=== PATIENT | female | born 1985 | race African-American/Black ===

== ENCOUNTER 2018-06-22 20:10 | Emergency (ER) | payer OTHER ==
[~2018-06-22] VITALS: Ht 160 cm; Wt 103.0 kg
[~2018-06-22 20:10] MED LIST: ADVAIR 100-501 EACH; ADVAIR 100-501 EACH INH; ADVAIR 250-501 EACH IH; ALBUTEROL INH; ALBUTEROL INHAL17 GM IH; ALBUTEROL2.5 MG/0.1; ALBUTEROL2.5 MG/31 INH; ALLERGY10 MG PO; CLEOCIN HCL300 MG PO; FLEXERIL PO; FLOVENT DISKUS50 MCG; HORMONE REPLACEMENT; NORCO 5-325 TA1 EACH PO; NORFLEX100 MG PO; PERCOCET 5-3251 EACH PO; PREDNISONE 1 MG1 M1; PREDNISONE 20 M20 MG PO; PREDNISONE50 MG PO; PRENATAL COMPL1 EACH PO; PROAIR HFA8.5 GM IH; PROAIR HFA8.5 GM INH; SINGULAIR; SINGULAIR 10 MG10 M1; VICODIN 5-5001 EACH PO; VIOS AEROSOL D1 EACH; ZOFRAN ODT4 MG PO; ZPAK PO
[2018-06-22 20:34] LABS: URINE BILIRUBIN NEGATIVE (Negative); URINE BLOOD NEGATIVE (Negative); URINE CLARITY CLEAR; URINE COLOR YELLOW; URINE GLUCOSE-RANDOM* NEGATIVE (Negative); URINE KETONES NEGATIVE (Negative); URINE LEUKOCYTES-REFLEX NEGATIVE (Negative); URINE NITRITE-REFLEX NEGATIVE (Negative); URINE PROTEIN (DIPSTICK) NEGATIVE (Negative); URINE UROBILINOGEN 0.2 E.U./dl (0.2-1.0)
[2018-06-22 22:18] LABS: ABSOLUTE NEUTROPHILS 8.9 thou/uL (1.4-8.2); BASOPHILS 0.3 % (0.0-2.0); EOSINOPHILS 0.7 % (0.0-3.0); HEMATOCRIT 41.5 % (37.0-47.0); HEMOGLOBIN 12.9 gm/dL (12.0-15.0); LYMPHOCYTES 12.6 % (24.0-44.0); MCV 90.2 fL (80.0-100.0); MONOCYTES 5.5 % (1.0-8.0); PLATELET COUNT 286 thou/uL (150-400); POLYS 80.9 % (36.0-66.0); RDW 14.3 % (10.5-14.5)
[2018-06-22 22:27] LABS: CALCIUM 8.7 mg/dL (8.5-10.1); CREATININE 0.6 mg/dL (0.6-1.0); POTASSIUM 3.9 mmol/L (3.5-5.1)
[2018-06-22 22:34] LABS: ALBUMIN 3.2 g/dL (3.4-5.0); TOTAL BILIRUBIN 0.5 mg/dL (<0.1-1.0); TOTAL PROTEIN 7.1 g/dL (6.4-8.2)
[2018-06-22] MEDS ORDERED: ONDANSETRON HCL4 M2 PO (22:57)
[2018-06-22 23:44] VITALS: BP 112/74
== END 2018-06-23 00:06 | disposition home or self-care (01) ==
LOC: ER 20:10
PROVIDERS: Physician Assistant
DX: R11.2 Nausea with vomiting, unspecified (principal); F12.90 Cannabis use, unspecified, uncomplicated; J45.909 Unspecified asthma, uncomplicated; Z77.22 Contact with and (suspected) exposure to environmental tobacco smoke (acute) (chronic); Z91.041 Radiographic dye allergy status; Z91.013 Allergy to seafood; Z90.49 Acquired absence of other specified parts of digestive tract

== ENCOUNTER 2018-09-21 11:36 | Emergency (ER) | payer OTHER ==
[~2018-09-21] VITALS: Ht 160 cm; Wt 119.3 kg
[~2018-09-21 11:36] MED LIST changes: +ONDANSETRON HCL4 M2 PO
[2018-09-21] MEDS ORDERED: ULTRAM 50MG TAB50 MG PO (12:56)
[2018-09-21 12:59] VITALS: BP 96/61
== END 2018-09-21 13:23 | disposition home or self-care (01) ==
LOC: ER 11:36
DX: S16.1XXA Strain of muscle, fascia and tendon at neck level, initial encounter (principal); M25.552 Pain in left hip; S39.012A Strain of muscle, fascia and tendon of lower back, initial encounter; J45.909 Unspecified asthma, uncomplicated; Z90.49 Acquired absence of other specified parts of digestive tract; Z77.22 Contact with and (suspected) exposure to environmental tobacco smoke (acute) (chronic); Z91.041 Radiographic dye allergy status; Z91.013 Allergy to seafood; V89.2XXA Person injured in unspecified motor-vehicle accident, traffic, initial encounter; Y93.89 Activity, other specified; Y92.89 Other specified places as the place of occurrence of the external cause; Y99.8 Other external cause status